=== PATIENT | female | born 1970 | race Caucasian/White ===

== ENCOUNTER 2025-02-15 20:18 | Emergency (ER) | payer OTHER, SELFPAY ==
--- NOTE | ~2025-02-15 | CT_ITS ---
CT abdomen pelvis wo con Ordering provider: Andrzej Levy MD History: 54 years Female with . LOWER ABD PAIN X 2 DAYS. . Comparison: None. Technique: CT abdomen and pelvis without IV and without oral contrast. Automated exposure control and iterative reconstruction technique were employed. The dose-length product was 625.65 mGy-cm. Findings: VISUALIZED LOWER CHEST: Normal. UPPER ABDOMINAL ORGANS: Liver: Normal. Gallbladder: Normal. Spleen: Normal. Stomach/duodenum: Normal. Pancreas: Normal. Adrenals: Normal. Kidneys: Hydronephrotic changes seen in the left kidney. Dilatation of the left ureter is also noted with no definite stones. PELVIC ORGANS: The bladder is normal. Small left ovarian cyst. Minimal fat stranding is seen around the cervix of the uterus. Clinical evaluation advised. BOWEL AND MESENTERY: Colon: No evidence of diverticulitis. Fecal material is loaded in the colon. Normal appendix. Appendi colith is seen in the appendix Small Bowel: Normal. No obstruction. Peritoneum/mesentery: No free air or free fluid. No mesenteric lymphadenopathy. RETROPERITONEUM: Normal aorta. No retroperitoneal lymphadenopathy. MUSCULOSKELETAL: Superficial soft tissues: The superficial soft tissues are normal. Bones: Age appropriate degenerative changes of the spine. Bilateral sacroiliacs. Bilateral moderate h ip osteoarthritic changes. IMPRESSION: 1. No evidence of appendicitis, diverticulitis or intestinal obstruction. 2. Left hydronephrotic changes with hydroureter. No definite ureteric stones. 3. Minimal fat stranding seen in the pelvis and around the cervix of the uterus. Clinical correlatio n and follow-up advised. 4. Small left ovarian cyst. 5. Constipation. Reviewed, dictated and finalized at location A. IMPRESSION: 1. No evidence of appendicitis, diverticulitis or intestinal obstruction. 2. Left hydronephrotic changes with hydroureter. No definite ureteric stones. 3. Minimal fat stranding seen in the pelvis and around the cervix of the uteru s. Clinical correlation and follow-up advised. 4. Small left ovarian cyst. 5. Constipation.
--- OUTSIDE RECORDS SUMMARY | 2025-02-15 20:21 | XMS_ITS | Clinical Summary ---
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 1 Inhaler 0 Active HYDROcodone-acet aminophen (NORCO) 5-325 MG tabletIndication s:Acute Pain < 7 Day Supply Take 1-2 tablets by mouth every 6 (six) hours as needed. Indications: Acute Pain < 7 Day Supply 20 tablet 3 Active Active Problems No known active problems Family History Medical History Relation Comments Coronary artery disease Father Osteoporosis Maternal Grandmother Alzheimers Paternal Grandfather Migraines Sister Relation Status Comments Father Alive Maternal Grandfather Maternal Grandmother Mother Alive Paternal Grandfather Paternal Grandmother Sister Alive Social History Tobacco Use Types Packs/Day Years Used Date Smoking Tobacco: Every Day Cigarettes 1 27 Smokeless Tobacco: Never Alcohol Use Standard Drinks/Week Comments No 0 (1 standard drink = 0.6 oz pur e alcohol) AUDIT-C Answer Date Recorded Frequency of Alcohol Consumption Never 03/29/2019 Average Number of Drinks Not on file 019 Frequency of Binge Drinking Not on file 03/07 PHQ-2 Answer Date Recorded PHQ-2 Score - If the patient scores above 3, please move on to questions 3-9 0 03/18/2020 Comments No Sex and Gender Information Value Date Recorded Sex Assigned at Not on file Legal Sex Female 8:37 PM CDT Gender Identity Not on file Sexual Orientation Not on file Last Filed Vital Signs Vital Sign Reading Time Taken Comments Blood Pressure 171/88 07/20/2023 9:46 PM MANAGER COSMETICS Pulse 79 07/20/2023 9:46 PM MANAGER COSMETICS Temperature 36.5 C (97.7 F) 07/20/2023 9:46 PM MANAGER COSMETICS Respiratory Rate 16 07/20/2023 9:46 PM MANAGER COSMETICS Oxygen Saturation 99% 07/20/2023 9:46 PM MANAGER COSMETICS Inhaled Oxygen Concentration - - Weight 90.8 kg (200 lb 3.2 oz) 07/20/2023 9:46 P M MANAGER COSMETICS Height 165.1 cm (5' 5) 07/20/2023 9:46 PM MANAGER COSMETICS Body Mass Index 33.32 07/20/2023 9:46 PM MANAGER COSMETICS Plan of Treatment Health Maintenance Due Date Last Done Comments Cervical Cancer Screening Pa p Smear (Age 30 to 64) Every 3 Years 1972 Colorectal Cancer Screening Colonoscopy (10 Years) 1972 Annual Physical 1975 Hepatitis C 1990 DTaP, Tdap and Td Vaccines ( 1 - Tdap) 1991 Hepatitis B Vaccines (1 of 3 - 19+ 3-dose series) 1991 Pneumococcal Vaccine: 50+ Ye ars (1 of 2 - PCV) 1991 Cervical Cancer Screening Pa p with HPV Testing (Age 30 to 64) Every 5 Years 2002 Cervical Cancer Screening with HPV 2002 Mammogram Screening 2012 Zoster Vaccines (1 of 2) 2022 COVID-19 Vaccine ( - 2023-2 5 season) 2024 Meningococcal B Vaccine Aged Out No l onger eligible based on patient's age to complete this topic Meningococcal Vaccine Aged Out No luz brigitte eligible based on patient's age to complete this topic RSV Immunizations Under 20 Months Aged Out No longer eligible based on patient's age to complete this topic Insurance [facility]
[2025-02-15 20:32] VITALS: BP 153/84; PULSE 84; RESP 18; TEMP 36.4; O2SAT 99
--- NOTE | 2025-02-15 20:43 | ED.ABDPAIN ---
HPI - Abdominal Pain General Chief Complaint: Abdominal Pain Stated Complaint: ABDOMINAL PAIN Time Seen by Provider: 02/15/25 20:20 Source: patient Mode of arrival: ambulatory Limitations: no limitations History of Present Illness HPI narrative: Patient is a 54-year-old female with generalized abdominal pain for the past 3-4 days. No nausea vomiting or diarrhea. The pain is noted after eating a meal. patient is otherwise healthy with no medications. Patient's 6 weeks ago and she is very stressed which may be contributing to some of this complaint. MD elicited complaint: abdominal pain Pertinent past history: none Onset (ago): day(s) ( 3-4) Pain Consistency: constant Location: diffuse Severity: mild Pain scale (0-10): 2 Quality: cramping and fullness Radiation: none Migration to: no migration Exacerbating factors: eating and rest Relieving factors: movement Context: confirms other ( patient having abdominal pain for the past 3-4 days diffusely after eating meals) Associated symptoms: denies other symptoms Treatments prior to arrival: other ( none) Related Data Allergies Allergy/AdvReac Type Severity Reaction Status Date / Time No Known Allergies Allergy Verified 02/15/25 20:28 Review of Systems Review of Systems: All systems reviewed & are unremarkable except as noted in HPI and below Constitutional: Constitutional: Reports no additional constitutional complaints Eyes: Eyes: Reports no additional eye complaints ENT: Reports system reviewed and no additional complaints, except as documented Cardiovascular: Cardiovascular: Reports no additional cardiovascular complaints Respiratory: Respiratory: Reports no additional respiratory complaints Gastrointestinal: Gastrointestinal: Reports no additional gastrointestinal complaints Genitourinary: Genitourinary: Reports no additional female genitourinary complaints Musculoskeletal: Musculoskeletal: Reports no additional musculoskeletal complaints Integumentary/Breasts: Skin/Breast: Reports system reviewed and no additional complaints, except as docu Neurologic: Reports system reviewed and no additional complaints, except as documented Psychiatric: Psychiatric: Reports no additional psychiatric complaints Endocrine: Endocrine: Reports no additional endocrine complaints Hematologic/Lymphatic: Hematologic/Lymphatic: Reports no additional hematologic/lymphatic complaints Allergic/Immunologic: Allergic/Immunologic: Reports no additional allergic/immunologic complaints Exam Const: General: healthy appearing and no acute distress Nutritional Appearance: well nourished Orientation/consciousness: patient oriented x3 Limitations: no limitations HENMT: Head: normal to inspection Ears: external ears normal Face/Nose/Sinus: Normal external nose present Eyes: Conjunctivae: conjunctivae normal Pupils: Equal, round and reactive pupils present EOM: EOMs intact bilaterally Neck: Neck: normal visual inspection Chest: Chest palpation & inspection: normal inspection of the chest Resp: Effort & Inspection: normal respiratory effort and not labored Auscultation: clear to auscultation bilaterally and no crackles Cardio: Rate: regular rate Rhythm: regular rhythm Heart sounds: no murmurs GI: Inspection: non-distended GI Palp: Yes Soft to palpation, Yes Tenderness to palpation present (GI) ( Diffuse), No Guarding due to palpation present (GI), No Rigid due to palpation, No Hernia present, No Palpable mass present and No Rebound tenderness present Auscultation: normal bowel sounds : General: Yes bladder normal to palpation Back/Spine/Pelvis: Back: no CVA tenderness Skin: General skin exam: normal color Rashes: no rashes Wounds: no wounds Neuro: General: patient oriented x3 Cranial nerves: Yes Nystagmus not present Speech: normal speech Gait exam (Neuro): Normal gait present Extrem: General: normal to inspection Psych: Mental Status: mental status grossly normal Affect: normal affect Attitude: cooperative Course Vital Signs Vital signs: Vital Signs Temperature 36.4 C 02/15/25 20:32 Pulse Rate 84 02/15/25 20:32 Respiratory Rate 18 02/15/25 20:32 Blood Pressure 153/84 H 02/15/25 20:32 Pulse Oximetry 99 02/15/25 20:32 Oxygen Delivery Room Air 02/15/25 20:32 Temperature 36.4 C 02/15/25 20:32 Pulse Rate 81 02/15/25 22:38 Respiratory Rate 18 02/15/25 22:38 Blood Pressure 144/72 H 02/15/25 22:38 Pulse Oximetry 97 02/15/25 22:38 Oxygen Delivery Room Air 02/15/25 22:38 MDM - Abdominal Pain MDM Narrative Medical decision making narrative: patient is a 54-year-old female with abdominal pain after eating. We will do GI workup at this time. patient has a variable workup with elevated wbc's, UTI, cervicitis and BV seen on urinalysis. We will use Rocephin, azithromycin and Flagyl in ER and Levaquin and Flagyl for discharge. Send urine for GC and chlamydia, urine culture, blood culture and follow-up gynecology. Lab Data Attestation: I reviewed the patient's lab results. 02/15/25 21:15 02/15/25 21:15 Labs: Lab Results 02/15/25 02/15/25 02/15/25 Range/Units 20:46 21:12 21:15 WBC 14.6 H (4.8-10.8) K/mm3 RBC 4.16 L (4.20-5.40) M/mm3 Hgb 12.3 (12.0-15.0) g/dL Hct 38.9 (35.0-49.0) % MCV 93.5 (78.0-102.0) fL MCH 29.6 (27.0-31.0) pg MCHC 31.6 L (32-36) g/dL RDW 13.0 (11.6-14.4) % Plt Count 431 H (150-420) K/mm3 MPV 10.8 (9.2-11.8) fl Immature Gran % (Auto) 0.5 H (0.0-0.0) % Neut % (Auto) 69.9 (50.0-70.0) % Lymph % (Auto) 20.8 (18.0-42.0) % [place] % (Auto) 6.2 (2.0-11.0) % Eos % (Auto) 2.1 (1.0-6.0) % Baso % (Auto) 0.5 (0.0-1.0) % Lymph # (Auto) 3.03 (1.10-4.50) K/mm3 [place] # (Auto) 0.90 (0.10-0.90) K/mm3 Eos # (Auto) 0.30 (0.02-0.50) K/mm3 Baso # (Auto) 0.07 (0.00-0.10) K/mm3 Abs Immat Gran (auto) 0.07 H (0.00-0.00) K/mm3 Absolute Neuts (auto) 10.18 H (1.70-7.20) K/mm3 Absolute Nucleated RBC 0.00 (0.00-0.00) K/mm3 Nucleated RBC % 0.0 (0-0.0) % PT 9.9 (9.50-12.1) Seconds INR 0.9 APTT 26.3 (23.9-30.70) Sec Sodium 138 (137-145) mmol/L Potassium 3.9 (3.4-5.0) mmol/L Chloride 108 H (98-107) mmol/L Carbon Dioxide 23 (22-30) mmol/L Anion Gap 7 (4-12) mmol/L BUN 17 (7-17) mg/dL Creatinine 0.85 (0.7-1.0) mg/dL Estim Creat Clear Calc 72 ml/min Estimated GFR > 60 (59 - ) Glucose 94 (65-110) mg/dL Calculated Osmolality 287 (285-295) mOsm/kg Calcium 8.9 (8.4-10.2) mg/dL Total Bilirubin 0.4 (0.2-1.3) mg/dL AST 25 (14-36) U/L ALT 13 (6-35) U/L Alkaline Phosphatase 79 (38-126) U/L Troponin I < 0.012 (0.000-0.034) ng/mL Total Protein 7.7 (6.3-8.2) g/dL Albumin 4.2 (3.5-5.1) g/dL Lipase 104 (23-300) U/L Urine Color Light yellow (Yellow) Urine Appearance Cloudy A (Clear) Urine pH 6.0 (5.0-8.0) Ur Specific [place] 1.010 (1.010-1.020) Urine Protein Negative (Negative) Urine Glucose (UA) Negative (Negative) Urine Ketones Negative (Negative) Ur Blood (Man) Trace-intact H (Negative) Urine Nitrate Negative (Negative) Urine Bilirubin Negative (Negative) Urine Urobilinogen 0.2 (0.2-1.0) mg/dL Leukocyte Esterase Rfl 3+ H (Negative) LUIS/UL Urine RBC 0-2 (0-2) /hpf Urine WBC 21-30 H (0-3) /hpf Urine WBC Clumps Present H (None) /hpf Ur Squamous Epith Cells Moderate H (Few) /hpf Amorphous Sediment Few H (None) Urine Bacteria 4+ H (None) /hpf Urine Mucus Few H /lpf Imaging Data Attestation: I personally reviewed and interpreted this imaging study as follows: Radiologist's impression: ITS Impressions Abdomen/Pelvis CT 02/15/25 21:50 IMPRESSION: 1. No evidence of appendicitis, diverticulitis or intestinal obstruction. 2. Left hydronephrotic changes with hydroureter. No definite ureteric stones. 3. Minimal fat stranding seen in the pelvis and around the cervix of the uterus. Clinical correlation and follow-up advised. 4. Small left ovarian cyst. 5. Constipation. ECG Data EKG #1: Attestation: I personally reviewed and interpreted this ECG as follows: ECG completion date: 02/15/25 ECG completion time: 21:19 normal rate, sinus rhythm, no ectopy, non-specific ST changes, normal QRS, normal QT and NL axis Discharge Plan Discharge Clinical Impression: Cervicitis, Bacterial vaginosis UTI (urinary tract infection) Qualifiers: Urinary tract infection type: acute cystitis Hematuria presence: with hematuria Qualified Code(s): N30.01 - Acute cystitis with hematuria Patient Disposition: Home Condition: Stable Instructions: Antibiotic Form, Bacterial Vaginosis (ED), Cervicitis (ED), Urinary Tract Infection in Women (DC) Additional Instructions: Please follow-up with a primary doctor/ Gynecology to get Pap smear and routine female exam. Your CT scan showed cervicitis which is being treated at this time. Patient Language: Hungarian Prescriptions: New levofloxacin 500 mg tablet 500 mg PO DAILY 7 Days Qty: 7 0RF metronidazole 500 mg tablet 500 mg PO BID 10 Days Qty: 20 0RF Follow-up/Referrals: Enrique Alexander MD [Physician] - Time of Disposition: 23:33
--- OUTSIDE RECORDS SUMMARY | 2025-02-15 20:46 | XMS_ITS | Clinical Summary ---
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 Name Role Phone Unavailable Primary Care Provider [...] Comments Blood Pressure 171/88 07/20/2023 9:46 PM ART HANDLER Pulse 79 07/20/2023 9:46 PM ART HANDLER Temperature 36.5 C (97.7 F) 07/20/2023 9:46 PM ART HANDLER Respiratory Rate 16 07/20/2023 9:46 PM ART HANDLER Oxygen Saturation 99% 07/20/2023 9:46 PM ART HANDLER Inhaled Oxygen Concentration - - Weight 90.8 kg (200 lb 3.2 oz) 07/20/2023 9:46 P M ART HANDLER Height 165.1 cm (5' 5) 07/20/2023 9:46 PM ART HANDLER Body Mass Index 33.32 07/20/2023 9:46 PM ART HANDLER Plan of Treatment Health Maintenance Due Date [...] patient's age to complete this topic Insurance [facility]
[2025-02-15 20:51] LABS: Add Urine Microscopic? YES; Glucose Urine UA Negative (Negative); Leukocyte Esterase Ur 3+ LEU/UL (Negative); Nitrate Urine Negative (Negative); Specific Grav Ur 1.010 (1.010-1.020)
--- NOTE | 2025-02-15 21:11 | ECG_ITS ---
Test Date: 2025-02-15 21:25:08 Measurements Intervals Endeavor Rate: 80 P: 72 AR: 175 QRS: 44 QRSD: 88 T: 48 QT: 382 QTc: 441 Interpretive Statements SINUS RHYTHM POSSIBLE LEFT ATRIAL ENLARGEMENT [-0.1mV P-WAVE IN V1/V2] No previous ECG available for comparison Electronically Signed On 02-16-2025 15:54:02 CDT by Oscar Barrientos M.D.
[2025-02-15 21:31] LABS: Appearance Urine Cloudy (Clear)
[2025-02-15 21:38] LABS: Alanine Aminotransferase 13 U/L (6-35); Albumin Level 4.2 g/dL (3.5-5.1); Alkaline Phosphatase 79 U/L (38-126); Anion Gap 7 mmol/L (4-12); Aspartate Amino Transferase 25 U/L (14-36); Bilirubin,Total 0.4 mg/dL (0.2-1.3); Blood Urea Nitrogen 17 mg/dL (7-17); Calcium 8.9 mg/dL (8.4-10.2); Carbon Dioxide 23 mmol/L (22-30); Chloride 108 mmol/L (98-107); Estimated CRCL calculation 72 ml/min; Estimated Glomerular Filt Rate > 60; Glucose 94 mg/dL (65-110); INR 0.9; Osmolality Calculated 287 mOsm/kg (285-295); Partial Thromboplastin Time 26.3 Sec (23.9-30.70); Potassium 3.9 mmol/L (3.4-5.0); Prothrombin Time 9.9 Seconds (9.50-12.1); Sodium 138 mmol/L (137-145); Total Protein 7.7 g/dL (6.3-8.2)
[2025-02-15 21:58] LABS: Lipase 104 U/L (23-300)
[2025-02-15 22:11] LABS: Hematocrit 38.9 % (35.0-49.0); Hemoglobin 12.3 g/dL (12.0-15.0); Immature Granulocyte Percent A 0.5 % (0.0-0.0); Lymphocytes Absolute Auto 3.03 K/mm3 (1.10-4.50); Mean Corpuscular HGB Conc 31.6 g/dL (32-36); Mean Corpuscular Hemoglobin 29.6 pg (27.0-31.0); Mean Corpuscular Volume 93.5 fL (78.0-102.0); Nucleated Red Blood Cells Absolute Auto 0.00 K/mm3 (0.00-0.00); Nucleated Red Blood Cells Perc 0.0 % (0-0.0); Platelet Count Result 431 K/mm3 (150-420); Red Blood Count 4.16 M/mm3 (4.20-5.40)
[2025-02-15 22:11] LABS: Troponin I < 0.012 ng/mL (0.000-0.034)
[2025-02-15 22:18] LABS: White Blood Count 14.6 K/mm3 (4.8-10.8)
[2025-02-15 22:38] VITALS: BP 144/72; PULSE 81; RESP 18; O2SAT 97
--- NOTE | 2025-02-15 22:50 | PC.NURSE ---
Pt resting, c/o abd cramping off and on and discomfort, informed pt Dr will be in to speak w/ her soon about CT results and POC. Call combs at pt side. VSS.
[2025-02-15] MEDS: AZITHROMYCIN 250 MG TABLET 1000 MG PO (23:34)
[2025-02-15] MEDS: cefTRIAXone 1 GM, LIDOCAINE 1% LOCAL INJ 2.1 ML IM (23:47)
[2025-02-16 00:02] VITALS: BP 139/90; PULSE 74; RESP 20; TEMP 36.8; O2SAT 98
--- NOTE | 2025-02-18 13:04 | PC.NURSE ---
preliminary blood culture reviewed. no growth to date
--- NOTE | 2025-02-18 13:06 | PC.NURSE ---
final urine culture report reviewed. organisms isolated are non-predominant
--- NOTE | 2025-02-20 12:49 | PC.NURSE ---
preliminary blood cultures x2 reviewed. no growth to date
--- NOTE | 2025-02-23 15:42 | PC.NURSE ---
final blood culture results x2: no aerobic or anaerobic growth in 5 days.
== END 2025-02-16 00:02 | disposition home or self-care (01) ==
PROVIDERS: Emergency Provider Emergency Medicine; Referring Provider Internal Medicine
DX: N72 Inflammatory disease of cervix uteri (principal); N76.0 Acute vaginitis; N30.01 Acute cystitis with hematuria
CPT/HCPCS: 36415; 74176; 80053; 81001; 83690; 84484; 85025; 85610; 85730; 87491; 87591; 93005; 96372; 99284; A9270